=== PATIENT | female | born 1950 | race Caucasian/White ===

== ENCOUNTER 2020-11-23 09:34 | Inpatient (IN) | payer MEDICARE, OTHER ==
--- NOTE | 2020-11-23 09:44 | ERPHSYRPT ---
- History of Present Illness Time Seen by Provider: 11/23/20 09:44 Source: patient, EMS Exam Limitations: no limitations Physician History: This is a 70-year-old white female with a history of gastroesophageal reflux disease, hypertension, diabetes, elevated cholesterol who has been sick for 1 week. Her symptoms include weakness, nausea decreased appetite, mild cough and chills. She has been exposed to an individual who is currently in the hospital with a COVID-19 infection. Patient lives alone. She was seen yesterday at [facility] emergency room and given intravenous fluids and blood work was performed. She was then sent home. However, this morning she states that her generalized weakness is significant. She was brought into the emergency department via ambulance service. Patient denies chest pain he has no significant abdominal pain. Timing/Duration: week(s) (1), gradual onset, worse Severity: moderate Associated Symptoms: nausea, shortness of breath, cough (Mild), chills, loss of appetite, malaise, weakness, No chest pain Allergies/Adverse Reactions: No Known Drug Allergies Allergy (Verified 11/23/20 10:12) Home Medications: Esomeprazole Magnesium [Nexium] 40 mg PO DAILY 03/04/20 [History] Ibandronate Sodium [Boniva] 150 mg PO UD 03/04/20 [History] Lisinopril 10 mg [Zestril 10 MG] 10 mg PO DAILY 03/04/20 [History] Rosuvastatin Calcium [Crestor] 20 mg PO HS 03/04/20 [History] glyBURIDE [Glyburide] 2.5 mg PO DAILY 03/04/20 [History] Travel Risk - International Travel Have you traveled outside of the country in past 3 weeks: No - Coronavirus Screening Are you exhibiting any of the following symptoms?: Yes Symptoms: Cough: New Onset, Shortness of Breath, Vomiting/Diarrhea Close contact with a COVID-19 positive Pt in past 14-21 Days: Yes - Vaccine Status Have you recieved a Covid-19 vaccination: No - Review of Systems Constitutional: Chills, Weakness Eyes: No Symptoms Ears, Nose, & Throat: No Symptoms Respiratory: Cough (Mild), Dyspnea (Mild) Cardiac: No Symptoms Abdominal/Gastrointestinal: Nausea, Appetite Changes, No Abdominal Pain, No Vomiting, No Diarrhea Genitourinary Symptoms: No Symptoms Musculoskeletal: No Symptoms Skin: No Symptoms Neurological: No Symptoms Psychological: No Symptoms Endocrine: No Symptoms Hematologic/Lymphatic: No Symptoms Immunological/Allergic: No Symptoms All Other Systems: Reviewed and Negative - Past Medical History Pertinent Past Medical History: Yes Neurological History: No Pertinent History ENT History: No Pertinent History Cardiac History: High Cholesterol, Hypertension Respiratory History: No Pertinent History Endocrine Medical History: Other Musculoskeletal History: Osteoporosis GI Medical History: GERD History: No Pertinent History Psycho-Social History: No Pertinent History Female Reproductive Disorders: No Pertinent History Other Medical History: borderline diabetic - Past Surgical History Past Surgical History: Yes Neuro Surgical History: No Pertinent History Cardiac: No Pertinent History Respiratory: No Pertinent History Gastrointestinal: Appendectomy Genitourinary: No Pertinent History Musculoskeletal: No Pertinent History Female Surgical History: Hysterectomy Other Surgical History: bladder tie up - Social History Smoking Status: Never smoker Drug Use: none - Nursing Vital Signs Nursing Vital Signs: Initial Vital Signs Temperature 97.7 F 11/23/20 09:54 Pulse Rate 77 11/23/20 09:54 Respiratory Rate 32 H 11/23/20 09:54 Blood Pressure 154/63 11/23/20 09:54 O2 Sat by Pulse Oximetry 99 11/23/20 09:54 Pain Scale Pain Intensity 0 - Physical Exam General Appearance: mild distress, alert, anxiety Eye Exam: PERRL/EOMI, eyes nml inspection Ears, Nose, Throat Exam: normal ENT inspection, moist mucous membranes Neck Exam: normal inspection, non-tender, supple, full range of motion Respiratory Exam: normal breath sounds, lungs clear, airway intact, No chest tenderness, No respiratory distress Cardiovascular Exam: regular rate/rhythm, normal heart sounds, normal peripheral pulses Gastrointestinal/Abdomen Exam: soft, normal bowel sounds, No tenderness Pelvic Exam: not done Rectal Exam: not done Extremity Exam: normal inspection, normal range of motion, pelvis stable Neurologic Exam: alert, oriented x 3, cooperative, 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 No comparison EKG available) Ordered Tests: Active Orders 24 hr Category Date Time Status EKG-ER Only STAT Care 11/23/20 09:54 Active IV Insertion STAT Care 11/23/20 09:54 Active Isolation, Initiate & Maintain STAT Care 11/23/20 09:55 Active Isolation, Initiate & Maintain STAT Care 11/23/20 09:58 Active House Regular Diet Diet 11/23/20 Dinner Active CHEST 1 VIEW (PORTABLE) Stat Exams 11/23/20 09:58 Completed CHEST WITH CONTRAST [CT] Stat Exams 11/23/20 12:51 Completed BLOOD CULTURE Stat Lab 11/23/20 11:00 Received CBC W DIFF Stat Lab 11/23/20 11:00 Completed CMP Stat Lab 11/23/20 11:00 Completed CULTURE,URINE Stat Lab 11/23/20 15:04 Received D-DIMER QUANTITATIVE Stat Lab 11/23/20 11:00 Completed Ferritin Stat Lab 11/23/20 11:00 Completed INFLUENZA A+B SHIRLENE Stat Lab 11/23/20 10:35 Completed LDH-LACTATE DEHYDROGENASE Stat Lab 11/23/20 11:00 Completed Lactic Acid Stat Lab 11/23/20 11:04 Completed Gilmer Screen Stat Lab 11/23/20 11:00 Completed TROPONIN Q3H Lab 11/23/20 11:00 Completed TROPONIN Q3H Lab 11/23/20 13:00 Completed TROPONIN Q3H Lab 11/23/20 16:00 Ordered TROPONIN Q3H Lab 11/23/20 19:00 Ordered TROPONIN Q3H Lab 11/23/20 22:00 Ordered UA W/RFX UR CULTURE Stat Lab 11/23/20 15:04 Completed Transfer Order Routine Transfer 11/23/20 Ordered Medication Summary Generic Name Dose Route Start Last Admin Trade Name Freq PRN Reason Stop Dose Admin Enoxaparin Sodium 60 mg 11/23/20 22:00 Enoxaparin Sodium SQ 12/23/20 21:59 BID KEVIN Sodium Chloride 1,000 mls @ 50 mls/hr 11/23/20 10:00 11/23/20 10:25 Sodium Chloride 0.9% 1000 Ml IV 12/23/20 09:59 50 mls/hr .Q20H KEVIN Administration Remdesivir 100 mg/ Sodium 100 mls @ 100 mls/hr 11/24/20 16:04 Chloride IV 11/27/20 17:03 Q24H KEVIN Discontinued Medications Generic Name Dose Route Start Last Admin Trade Name Colt PRN Reason Stop Dose Admin Dexamethasone Sodium Phosphate 8 mg 11/23/20 15:56 11/23/20 16:03 Decadron 10mg Inj. IV 11/23/20 15:57 8 mg STAT ONE Administration Dexamethasone Sodium Phosphate Confirm 11/23/20 16:01 Decadron 10mg Inj. Administered 11/23/20 16:02 Dose 10 mg .ROUTE .STK-MED ONE Enoxaparin Sodium 50 mg 11/23/20 15:57 11/23/20 16:04 Enoxaparin Sodium SQ 11/23/20 15:58 50 mg STAT ONE Administration Enoxaparin Sodium Confirm 11/23/20 16:01 Enoxaparin Sodium Administered 11/23/20 16:02 Dose 80 mg SQ .STK-MED ONE Ondansetron HCl 4 mg 11/23/20 09:54 11/23/20 10:25 Zofran 4 Mg/2 Ml Vial IV 11/23/20 09:55 4 mg STAT ONE Administration Ondansetron HCl Confirm 11/23/20 10:21 Zofran 4 Mg/2 Ml Vial Administered 11/23/20 10:22 Dose 4 mg .ROUTE .STK-MED ONE Lab/Rad Data: Laboratory Result Diagrams 11/23/20 11:00 11/23/20 11:00 Laboratory Results 11/23/20 11/23/20 11/23/20 Range/Units 15:04 13:00 11:04 WBC (4.0-10.5) K/mm3 RBC (4.1-5.4) M/mm3 Hgb (12.0-16.0) gm/dl Hct (35-47) % MCV (78-100) fl MCH (26-32) pg MCHC (32-36) g/dl RDW (11.5-14.0) % Plt Count (150-450) K/mm3 MPV (7.5-11.0) fl Gran % (36.0-66.0) % Eos # (Auto) (0-0.5) Absolute Lymphs (auto) (1.0-4.6) Absolute Monos (auto) (0.0-1.3) Lymphocytes % (24.0-44.0) % Monocytes % (0.0-12.0) % Eosinophils % (0.00-5.0) % Basophils % (0.0-0.4) % Absolute Granulocytes (1.4-6.9) Basophils # (0-0.4) D-Dimer (215-500) ng/mL Sodium (137-145) mmol/L Potassium (3.5-5.1) mmol/L Chloride (98-107) mmol/L Carbon Dioxide (22-30) mmol/L Anion Gap (5-15) MEQ/L BUN (7-17) mg/dL Creatinine (0.52-1.04) mg/dL Estimated GFR ML/MIN Glucose (74-106) mg/dL Lactic Acid 1.6 (0.4-2.0) Calcium (8.4-10.2) mg/dL Ferritin (11.1-264) ng/mL Total Bilirubin (0.2-1.3) mg/dL AST (14-36) U/L ALT (0-35) U/L Alkaline Phosphatase (38-126) U/L Lactate Dehydrogenase (120-246) U/L Troponin I < 0.012 (0.000-0.034) ng/mL Serum Total Protein (6.3-8.2) g/dL Albumin (3.5-5.0) g/dL Urine Color YELLOW (YELLOW) Urine Appearance CLEAR (CLEAR) Urine pH 6.0 (5-6) Ur Specific [place] 1.044 (1.005-1.025) Urine Protein NEGATIVE (Negative) Urine Ketones SMALL (NEGATIVE) Urine Blood SMALL (0-5) Johnnie/ul Urine Nitrite NEGATIVE (NEGATIVE) Urine Bilirubin NEGATIVE (NEGATIVE) Urine Urobilinogen NEGATIVE (0-1) mg/dL Ur Leukocyte Esterase NEGATIVE (NEGATIVE) Urine WBC (Auto) 3-5 (0-5) /HPF Urine RBC (Auto) 0-2 (0-2) /HPF U Epithel Cells (Auto) NONE (FEW) /HPF Urine Bacteria (Auto) MANY (NEGATIVE) /HPF Urine Mucus (Auto) SLIGHT (NEGATIVE) /HPF Urine Culture Reflexed YES (NO) Urine Glucose NEGATIVE (NEGATIVE) mg/dL Monoscreen (Negative) Influenza Type A Ag (NEGATIVE) Influenza Type B Ag (NEGATIVE) Group A Strep Antibody (NEGATIVE) 11/23/20 11/23/2011/23/21 Range/Units 11:00 11:00 11:00 WBC (4.0-10.5) K/mm3 RBC (4.1-5.4) M/mm3 Hgb (12.0-16.0) gm/dl Hct (35-47) % MCV (78-100) fl MCH (26-32) pg MCHC (32-36) g/dl RDW (11.5-14.0) % Plt Count (150-450) K/mm3 MPV (7.5-11.0) fl Gran % (36.0-66.0) % Eos # (Auto) (0-0.5) Absolute Lymphs (auto) (1.0-4.6) Absolute Monos (auto) (0.0-1.3) Lymphocytes % (24.0-44.0) % Monocytes % (0.0-12.0) % Eosinophils % (0.00-5.0) % Basophils % (0.0-0.4) % Absolute Granulocytes (1.4-6.9) Basophils # (0-0.4) D-Dimer (215-500) ng/mL Sodium (137-145) mmol/L Potassium (3.5-5.1) mmol/L Chloride (98-107) mmol/L Carbon Dioxide (22-30) mmol/L Anion Gap (5-15) MEQ/L BUN (7-17) mg/dL Creatinine (0.52-1.04) mg/dL Estimated GFR ML/MIN Glucose (74-106) mg/dL Lactic Acid (0.4-2.0) Calcium (8.4-10.2) mg/dL Ferritin 284 H (11.1-264) ng/mL Total Bilirubin (0.2-1.3) mg/dL AST (14-36) U/L ALT (0-35) U/L Alkaline Phosphatase (38-126) U/L Lactate Dehydrogenase (120-246) U/L Troponin I < 0.012 (0.000-0.034) ng/mL Serum Total Protein (6.3-8.2) g/dL Albumin (3.5-5.0) g/dL Urine Color (YELLOW) Urine Appearance (CLEAR) Urine pH (5-6) Ur Specific [place] (1.005-1.025) Urine Protein (Negative) Urine Ketones (NEGATIVE) Urine Blood (0-5) Johnnie/ul Urine Nitrite (NEGATIVE) Urine Bilirubin (NEGATIVE) Urine Urobilinogen (0-1) mg/dL Ur Leukocyte Esterase (NEGATIVE) Urine WBC (Auto) (0-5) /HPF Urine RBC (Auto) (0-2) /HPF U Epithel Cells (Auto) (FEW) /HPF Urine Bacteria (Auto) (NEGATIVE) /HPF Urine Mucus (Auto) (NEGATIVE) /HPF Urine Culture Reflexed (NO) Urine Glucose (NEGATIVE) mg/dL Monoscreen NEGATIVE (Negative) Influenza Type A Ag (NEGATIVE) Influenza Type B Ag (NEGATIVE) Group A Strep Antibody (NEGATIVE) 11/23/20 11/23/20 11/23/20 Range/Units 11:00 11:00 11:00 WBC 3.5 L (4.0-10.5) K/mm3 RBC 4.11 (4.1-5.4) M/mm3 Hgb 12.5 (12.0-16.0) gm/dl Hct 37.8 (35-47) % MCV 92.0 (78-100) fl MCH 30.4 (26-32) pg MCHC 33.1 (32-36) g/dl RDW 12.2 (11.5-14.0) % Plt Count 143 L (150-450) K/mm3 MPV 10.8 (7.5-11.0) fl Gran % 70.1 H (36.0-66.0) % Eos # (Auto) 0 (0-0.5) Absolute Lymphs (auto) 0.74 L (1.0-4.6) Absolute Monos (auto) 0.31 (0.0-1.3) Lymphocytes % 21.1 L (24.0-44.0) % Monocytes % 8.8 (0.0-12.0) % Eosinophils % 0.0 (0.00-5.0) % Basophils % 0.0 (0.0-0.4) % Absolute Granulocytes 2.46 (1.4-6.9) Basophils # 0 (0-0.4) D-Dimer 1080 H* (215-500) ng/mL Sodium 138 (137-145) mmol/L Potassium 4.7 (3.5-5.1) mmol/L Chloride 105 (98-107) mmol/L Carbon Dioxide 22 (22-30) mmol/L Anion Gap 14.6 (5-15) MEQ/L BUN 16 (7-17) mg/dL Creatinine 0.60 (0.52-1.04) mg/dL Estimated GFR > 60.0 ML/MIN Glucose 52 L (74-106) mg/dL Lactic Acid (0.4-2.0) Calcium 8.9 (8.4-10.2) mg/dL Ferritin (11.1-264) ng/mL Total Bilirubin 0.50 (0.2-1.3) mg/dL AST 38 H (14-36) U/L ALT 25 (0-35) U/L Alkaline Phosphatase 49 (38-126) U/L Lactate Dehydrogenase 210 (120-246) U/L Troponin I (0.000-0.034) ng/mL Serum Total Protein 6.6 (6.3-8.2) g/dL Albumin 3.9 (3.5-5.0) g/dL Urine Color (YELLOW) Urine Appearance (CLEAR) Urine pH (5-6) Ur Specific [place] (1.005-1.025) Urine Protein (Negative) Urine Ketones (NEGATIVE) Urine Blood (0-5) Johnnie/ul Urine Nitrite (NEGATIVE) Urine Bilirubin (NEGATIVE) Urine Urobilinogen (0-1) mg/dL Ur Leukocyte Esterase (NEGATIVE) Urine WBC (Auto) (0-5) /HPF Urine RBC (Auto) (0-2) /HPF U Epithel Cells (Auto) (FEW) /HPF Urine Bacteria (Auto) (NEGATIVE) /HPF Urine Mucus (Auto) (NEGATIVE) /HPF Urine Culture Reflexed (NO) Urine Glucose (NEGATIVE) mg/dL Monoscreen (Negative) Influenza Type A Ag (NEGATIVE) Influenza Type B Ag (NEGATIVE) Group A Strep Antibody (NEGATIVE) 11/23/20 11/23/20 Range/Units 10:35 10:35 WBC (4.0-10.5) K/mm3 RBC (4.1-5.4) M/mm3 Hgb (12.0-16.0) gm/dl Hct (35-47) % MCV (78-100) fl MCH (26-32) pg MCHC (32-36) g/dl RDW (11.5-14.0) % Plt Count (150-450) K/mm3 MPV (7.5-11.0) fl Gran % (36.0-66.0) % Eos # (Auto) (0-0.5) Absolute Lymphs (auto) (1.0-4.6) Absolute Monos (auto) (0.0-1.3) Lymphocytes % (24.0-44.0) % Monocytes % (0.0-12.0) % Eosinophils % (0.00-5.0) % Basophils % (0.0-0.4) % Absolute Granulocytes (1.4-6.9) Basophils # (0-0.4) D-Dimer (215-500) ng/mL Sodium (137-145) mmol/L Potassium (3.5-5.1) mmol/L Chloride (98-107) mmol/L Carbon Dioxide (22-30) mmol/L Anion Gap (5-15) MEQ/L BUN (7-17) mg/dL Creatinine (0.52-1.04) mg/dL Estimated GFR ML/MIN Glucose (74-106) mg/dL Lactic Acid (0.4-2.0) Calcium (8.4-10.2) mg/dL Ferritin (11.1-264) ng/mL Total Bilirubin (0.2-1.3) mg/dL AST (14-36) U/L ALT (0-35) U/L Alkaline Phosphatase (38-126) U/L Lactate Dehydrogenase (120-246) U/L Troponin I (0.000-0.034) ng/mL Serum Total Protein (6.3-8.2) g/dL Albumin (3.5-5.0) g/dL Urine Color (YELLOW) Urine Appearance (CLEAR) Urine pH (5-6) Ur Specific [place] (1.005-1.025) Urine Protein (Negative) Urine Ketones (NEGATIVE) Urine Blood (0-5) Johnnie/ul Urine Nitrite (NEGATIVE) Urine Bilirubin (NEGATIVE) Urine Urobilinogen (0-1) mg/dL Ur Leukocyte Esterase (NEGATIVE) Urine WBC (Auto) (0-5) /HPF Urine RBC (Auto) (0-2) /HPF U Epithel Cells (Auto) (FEW) /HPF Urine Bacteria (Auto) (NEGATIVE) /HPF Urine Mucus (Auto) (NEGATIVE) /HPF Urine Culture Reflexed (NO) Urine Glucose (NEGATIVE) mg/dL Monoscreen (Negative) Influenza Type A Ag NEGATIVE (NEGATIVE) Influenza Type B Ag NEGATIVE (NEGATIVE) Group A Strep Antibody NEGATIVE (NEGATIVE) - Progress Progress: improved, re-examined Progress Note: 11/23/20 10:30 Chest x-ray shows left lower lobe hazy interstitial alveolar opacity without consolidation. 11/23/20 13:59 Chest CAT scan with contrast shows no pulmonary embolus. There is bilateral lower lobe patchy airspace disease and mild right upper lobe patchy airspace disease present. Counseled pt/family regarding: lab results, diagnosis, rad results - Departure Departure Disposition: In-patient Admission Clinical Impression: COVID-19 virus infection, Weakness Condition: Stable Critical Care Time: No Referrals: MARIO POLANCO [Primary Care Provider] -
[2020-11-23] MEDS ORDERED: Zofran 4 MG/2 ML VIAL IV ONE (09:54)
[2020-11-23] MEDS ORDERED: Sodium Chloride 0.9% 1000 ML 1,000 ML IV SCH (10:00)
--- NOTE | 2020-11-23 10:20 | XRAY ---
Indication: Cough. Positive Covid 19. Comparison: None Portable chest demonstrates left lower lobe hazy interstitial alveolar opacity without consolidation/large effusion. Remaining heart and lungs unremarkable with incidental small mediastinal calcified nodes. Bony thorax intact.
[2020-11-23] MEDS ORDERED: Sodium Chloride 0.9% 1000 ML 1,000 ML ONE (10:21)
[2020-11-23] MEDS ORDERED: Zofran 4 MG/2 ML VIAL ONE (10:21)
[2020-11-23 11:07] LABS: INFLUENZA A NEGATIVE (NEGATIVE); INFLUENZA B NEGATIVE (NEGATIVE)
[2020-11-23 11:20] LABS: Absolute Neutrophil Ct (ANC) 2.46 (1.4-6.9); Basophil (Absolute #) 0 (0-0.4); Eosinophil (Absolute #) 0 (0-0.5); Hematocrit 37.8 % (35-47); Hemoglobin 12.5 gm/dl (12.0-16.0); Lymphocyte (Absolute #) 0.74 (1.0-4.6); Lymphocytes % 21.1 % (24.0-44.0); Mean Corpuscular Hemoglobin 30.4 pg (26-32); Mean Corpuscular Hgb Concent. 33.1 g/dl (32-36); Mean Platelet Volume 10.8 fl (7.5-11.0); Monocyte (Absolute #) 0.31 (0.0-1.3); Monocytes % 8.8 % (0.0-12.0); Neutrophil % 70.1 % (36.0-66.0); Platelet Count 143 K/mm3 (150-450); Red Blood Count 4.11 M/mm3 (4.1-5.4); Red Cell Distribution Width 12.2 % (11.5-14.0); White Blood Count 3.5 K/mm3 (4.0-10.5)
[2020-11-23 11:21] LABS: ALBUMIN 3.9 g/dL (3.5-5.0); ALKALINE PHOSPHATASE 49 U/L (38-126); ANION GAP 14.6 MEQ/L (5-15); BLOOD UREA NITROGEN 16 mg/dL (7-17); CHLORIDE 105 mmol/L (98-107); Calcium 8.9 mg/dL (8.4-10.2); Carbon Dioxide 22 mmol/L (22-30); EST GLOMERULAR FILTRATION RATE > 60.0 ML/MIN; Glucose 52 mg/dL (74-106); LDH-LACTATE DEHYDROGENASE 210 U/L (120-246); Potassium 4.7 mmol/L (3.5-5.1); SGOT/AST 38 U/L (14-36); SGPT/ALT 25 U/L (0-35); SODIUM 138 mmol/L (137-145); Total Protein 6.6 g/dL (6.3-8.2)
[2020-11-23] MEDS ORDERED: HOLD METFORMIN PRODUCTS FOR 48 HOURS MC PRN (13:00)
--- NOTE | 2020-11-23 13:08 | XRAY ---
Indication: Short of breath. Positive Covid 19. Elevated d-dimer. Multiple contiguous axial images obtained through the chest using 80 cc Isovue 370 contrast and PE protocol. Comparison: None There is good opacification of the pulmonary arteries to include the lobar and segmental branches. No pulmonary embolus. Heart is not enlarged. Aorta is normal in course and caliber. Small precarinal calcified nodes. No pathologic mediastinal/hilar lymphadenopathy. Small hiatal hernia. Lungs demonstrate posterior bilateral lower lobe patchy airspace disease left greater than right. Additional minimal posterior right upper lobe patchy airspace disease. No consolidation or effusion. Incidental inferior right upper lobe calcified granuloma. Bony thorax intact with minimal degenerative changes throughout the spine. Limited upper abdomen demonstrate mild fatty liver. Impression: 1. Negative pulmonary embolus. 2. Bilateral lower lobe and lesser degree right upper lobe patchy airspace disease. 3. Incidental fatty liver, small hiatal hernia, and old granulomatous disease.
[2020-11-23 15:45] LABS: Appearance CLEAR (CLEAR); Bacteria MANY /HPF (NEGATIVE); Bilirubin NEGATIVE (NEGATIVE); Blood SMALL Ery/ul (0-5); Glucose NEGATIVE (NEGATIVE); Ketones SMALL (NEGATIVE); Leukocyte Esterase NEGATIVE (NEGATIVE); Mucus SLIGHT /HPF (NEGATIVE); Nitrite NEGATIVE (NEGATIVE); Protein,Urine Dip NEGATIVE (Negative); RBC 0-2 /HPF (0-2); Specific Gravity 1.044 (1.005-1.025); Urobilinogen NEGATIVE mg/dL (0-1)
[2020-11-23] MEDS ORDERED: DECADRON 10MG INJ. IV ONE (15:56)
[2020-11-23] MEDS ORDERED: ENOXAPARIN SODIUM SQ ONE ×2 (15:57→16:01)
[2020-11-23] MEDS ORDERED: DECADRON 10MG INJ. ONE (16:01)
[2020-11-23] MEDS ORDERED: TYLENOL 325 MG PO PRN (16:40)
[2020-11-23] MEDS ORDERED: Zofran 4 MG/2 ML VIAL IV PRN (16:40)
[2020-11-23] MEDS ORDERED: REMDESIVIR 200 MG in Sodium Chloride 0.9% 250 ML 250 ML IV ONE (18:00)
[2020-11-23] MEDS ORDERED: Ativan 1 MG PO PRN (19:52)
[2020-11-23] MEDS ORDERED: Lomotil PO PRN (19:53)
[2020-11-23] MEDS ORDERED: TYLENOL EXTRA STRENGTH 500 MG PO PRN (19:53)
[2020-11-23] MEDS ORDERED: ZOCOR 20MG PO SCH (22:00)
[2020-11-23] MEDS ORDERED: ENOXAPARIN SODIUM SQ SCH (22:00)
[2020-11-24 07:20] LABS: ALBUMIN 3.2 g/dL (3.5-5.0); ALKALINE PHOSPHATASE 44 U/L (38-126); ANION GAP 9.5 MEQ/L (5-15); BLOOD UREA NITROGEN 13 mg/dL (7-17); CHLORIDE 110 mmol/L (98-107); Calcium 7.7 mg/dL (8.4-10.2); Carbon Dioxide 22 mmol/L (22-30); Creatinine 1 0.57 mg/dL (0.52-1.04); EST GLOMERULAR FILTRATION RATE > 60.0 ML/MIN; Glucose 140 mg/dL (74-106); Potassium 3.5 mmol/L (3.5-5.1); SGOT/AST 35 U/L (14-36); SGPT/ALT 22 U/L (0-35); SODIUM 138 mmol/L (137-145); Total Protein 5.7 g/dL (6.3-8.2)
[2020-11-24 07:24] LABS: Hematocrit 33.3 % (35-47); Mean Corpuscular Hemoglobin 30.4 pg (26-32); Mean Platelet Volume 11.4 fl (7.5-11.0); Platelet Count 139 K/mm3 (150-450); Red Blood Count 3.62 M/mm3 (4.1-5.4); Red Cell Distribution Width 12.4 % (11.5-14.0)
[2020-11-24] MEDS ORDERED: IBANDRONATE SODIUM 150 MG PO SCH (07:30)
[2020-11-24] MEDS ORDERED: MEDICATION INTERVENTION PO SCH (07:45)
[2020-11-24] MEDS: Sodium Chloride 0.9% 1000 ML 1,000 ML IV SCH ×2 (08:18→11:31)
[2020-11-24] MEDS: DECADRON 10MG INJ. IV SCH (09:49)
[2020-11-24] MEDS: Zestril 10 MG PO SCH (09:49)
[2020-11-24] MEDS ORDERED: GLYBURIDE 2.5 MG PO SCH (10:00)
[2020-11-24 14:38] LABS: ANISOCYTOSIS 1+; Lymphocytes 29 % (24-44); Monocyte 10 % (0.0-12.0); Neutrophils 61 % (36.0-66.0); Platelet Estimate NORMAL (NORMAL); Total Cells Counted 100
[2020-11-24] MEDS ORDERED: REMDESIVIR 100 MG in Sodium Chloride 0.9% 100 ML IVPB 100 ML IV SCH (16:04)
[2020-11-24] MEDS: REMDESIVIR 100 MG in Sodium Chloride 0.9% 100 ML IVPB 100 ML IV SCH (17:00)
[2020-11-24] MEDS: ZOCOR 20MG PO SCH (21:32)
[2020-11-25] MEDS: Sodium Chloride 0.9% 1000 ML 1,000 ML IV SCH ×2 (06:05→21:59)
[2020-11-25 06:09] LABS: Hematocrit 33.8 % (35-47); Hemoglobin 11.4 gm/dl (12.0-16.0); Mean Cell Volume 91.4 fl (78-100); Mean Corpuscular Hemoglobin 30.8 pg (26-32); Mean Corpuscular Hgb Concent. 33.7 g/dl (32-36); Mean Platelet Volume 10.9 fl (7.5-11.0); Platelet Count 161 K/mm3 (150-450); Red Cell Distribution Width 12.3 % (11.5-14.0); White Blood Count 4.5 K/mm3 (4.0-10.5)
[2020-11-25 06:22] LABS: ALKALINE PHOSPHATASE 44 U/L (38-126); ANION GAP 9.9 MEQ/L (5-15); BLOOD UREA NITROGEN 18 mg/dL (7-17); CHLORIDE 113 mmol/L (98-107); Calcium 8.1 mg/dL (8.4-10.2); Carbon Dioxide 22 mmol/L (22-30); Creatinine 1 0.56 mg/dL (0.52-1.04); EST GLOMERULAR FILTRATION RATE > 60.0 ML/MIN; Glucose 133 mg/dL (74-106); Potassium 3.4 mmol/L (3.5-5.1); SGOT/AST 32 U/L (14-36); SGPT/ALT 25 U/L (0-35); SODIUM 141 mmol/L (137-145); Total Protein 5.4 g/dL (6.3-8.2)
[2020-11-25] MEDS ORDERED: Levofloxacin 500MG/100ML D5W 500 MG/100 ML BAG IV ONE ×2 (07:00→07:02)
[2020-11-25] MEDS: Micronase 5 MG PO SCH (07:46)
[2020-11-25] MEDS: DECADRON 10MG INJ. IV SCH (10:06)
[2020-11-25] MEDS: Zestril 10 MG PO SCH (10:07)
[2020-11-25] MEDS ORDERED: Sodium Chloride 0.9% 1000 ML 1,000 ML IV SCH (12:00)
[2020-11-25 12:48] LABS: Slide Review YES
[2020-11-25] MEDS: ENOXAPARIN SODIUM SQ SCH (13:35)
[2020-11-25 14:10] LABS: Appearance CLEAR (CLEAR); Bacteria RARE /HPF (NEGATIVE); Bilirubin NEGATIVE (NEGATIVE); Blood NEGATIVE Ery/ul (0-5); Glucose NEGATIVE (NEGATIVE); Ketones NEGATIVE (NEGATIVE); Leukocyte Esterase MODERATE (NEGATIVE); Nitrite NEGATIVE (NEGATIVE); Protein,Urine Dip NEGATIVE (Negative); RBC 0-2 /HPF (0-2); Urobilinogen NEGATIVE mg/dL (0-1); WBC 26-50 /HPF (0-5)
[2020-11-25] MEDS: REMDESIVIR 100 MG in Sodium Chloride 0.9% 100 ML IVPB 100 ML IV SCH (17:14)
[2020-11-25] MEDS: ZOCOR 20MG PO SCH (21:59)
[2020-11-26 05:45] LABS: Absolute Neutrophil Ct (ANC) 2.69 (1.4-6.9); BASOPHIL % 0.2 % (0.0-0.4); Basophil (Absolute #) 0.01 (0-0.4); Eosinophil (Absolute #) 0 (0-0.5); Hematocrit 32.2 % (35-47); Hemoglobin 10.7 gm/dl (12.0-16.0); Lymphocyte (Absolute #) 1.14 (1.0-4.6); Lymphocytes % 26.3 % (24.0-44.0); Mean Cell Volume 92.3 fl (78-100); Mean Corpuscular Hemoglobin 30.7 pg (26-32); Mean Corpuscular Hgb Concent. 33.2 g/dl (32-36); Mean Platelet Volume 11.4 fl (7.5-11.0); Monocyte (Absolute #) 0.49 (0.0-1.3); Monocytes % 11.3 % (0.0-12.0); Neutrophil % 62.2 % (36.0-66.0); Platelet Count 163 K/mm3 (150-450); Red Blood Count 3.49 M/mm3 (4.1-5.4); Red Cell Distribution Width 12.4 % (11.5-14.0); White Blood Count 4.3 K/mm3 (4.0-10.5)
[2020-11-26 06:15] LABS: ALBUMIN 2.7 g/dL (3.5-5.0); ALKALINE PHOSPHATASE 41 U/L (38-126); BLOOD UREA NITROGEN 20 mg/dL (7-17); CHLORIDE 113 mmol/L (98-107); Carbon Dioxide 25 mmol/L (22-30); Creatinine 1 0.61 mg/dL (0.52-1.04); EST GLOMERULAR FILTRATION RATE > 60.0 ML/MIN; Glucose 123 mg/dL (74-106); Potassium 3.2 mmol/L (3.5-5.1); SGOT/AST 32 U/L (14-36); SGPT/ALT 30 U/L (0-35); SODIUM 142 mmol/L (137-145)
[2020-11-26 07:55] LABS: Lymphocytes 32 % (24-44); Monocyte 6 % (0.0-12.0); Neutrophils 62 % (36.0-66.0); Platelet Estimate NORMAL (NORMAL); Total Cells Counted 100
[2020-11-26] MEDS: Micronase 5 MG PO SCH (07:59)
[2020-11-26 08:22] VITALS: BP 140/62
[2020-11-26] MEDS: Zestril 10 MG PO SCH (09:17)
[2020-11-26] MEDS: DECADRON 10MG INJ. IV SCH (09:18)
[2020-11-26] MEDS: ENOXAPARIN SODIUM SQ SCH (09:18)
--- NOTE | 2020-11-26 10:49 | HP ---
CHIEF COMPLAINT: Severe weakness, trouble walking, confusion, diarrhea. HISTORY OF PRESENT ILLNESS: The patient got up this morning fell to the floor and could not get off the floor. Crawled to the phone and she called 911. She was taken to [facility] and they evaluated her and sent her home. Her COVID test was positive yesterday. She was given IV fluids and blood was performed. Her generalized weakness is more significant today. She denies chest pain. She did have a slight cough while I talked to her but she had not really noticed and she said she was having some slight diarrhea. She really has been feeling kind of bad for a week. Her two friends and her went to a flower show, I believe, in a town nearby. They went into a restaurant and left when people were not isolating. Apparently they were unfortunate enough to get COVID at that time. MEDICATIONS: Nexium 40 q.d., Boniva 150 q.d., Zestril 10 q.d., Crestor 20 h.s., Glyburide 2.5 q.d. ALLERGIES: NKDA. VACCINE STATUS: No COVID vaccine. PAST MEDICAL HISTORY: High cholesterol, hypertension all under control. PAST SURGICAL HISTORY: Hysterectomy. Appendectomy. Bladder tie up. REVIEW OF SYSTEMS: CONSTITUTIONAL: Weakness, chills, problems with numbness in the feet and hands. HEENT: No problems hearing or seeing. CHEST: Cough, slightly short of breath. CVS: No symptoms. GI: Nausea, reflux usually. : The patient has had kidney stones on ultrasound. She has one on the left. She has trouble with long standing urinary tract infections with a kidney stone that was stuck at one time. MUSCULOSKELETAL: Osteoporosis, aching all over. PSYCHOSOCIAL: No history. ENDOCRINE: Borderline diabetic. She had hysterectomy and takes no hormones. FAMILY HISTORY: She has a daughter who is a nurse. SOCIAL HISTORY: Never smoked. PHYSICAL EXAMINATION: The patient is alert, orientated, pleasant, slightly tense. VITAL SIGNS: Temperature 98F, pulse 70, respirations 30, blood pressure 154/63. O2 saturation on room air 99%. Pain intensity 0. GENERAL: The patient is alert, orientated and very anxious. HEENT: Pupils equal and reactive to light. NECK: Supple without adenopathy. CHEST: Clear. CVS: No murmurs or gallops. ABDOMEN: Slight tenderness in the epigastric area otherwise normal. EXTREMITIES: Can move all, fair sensation. NEUROLOGIC: Cranial nerves intact. LAB DATA AND TESTS: CT abdomen was normal. CT of the chest showed no pulmonary embolism, bilateral lower lobe patchy airspace disease and mild right upper quadrant patchy airspace present. Normal O2 saturations. Troponins were negative. Influenza negative. Ferritin normal. White count was 3.5, hemoglobin 12.5. Electrolytes were normal except for sodium now 138, apparently was low at [facility]. IMPRESSION: The patient tested positive for COVID. She has generalized anxiety, feeling of disorientation and illness probably all related to the disease. The patient definitely has slight COVID pneumonia. She has feeling of dysphoria, recent neurological symptoms, anxiety. She is a very pleasant retired person. She should respond well to medical treatment and anxiety medicines. PROGNOSIS: Moose to be good.
[2020-11-26] MEDS: REMDESIVIR 100 MG in Sodium Chloride 0.9% 100 ML IVPB 100 ML IV SCH (12:10)
[2020-11-26 13:07] VITALS: PULSE 73; O2SAT 93
== END 2020-11-26 14:00 | disposition home or self-care (01) | DRG 177 ==
LOC: ED 09:34 → MED SURG 16:24
PROVIDERS: ADMIT Family Medicine; ATTEND Family Medicine
DX: U07.1 COVID-19 (principal); J12.82 Pneumonia due to coronavirus disease 2019; N39.0 Urinary tract infection, site not specified; R53.1 Weakness; I10 Essential (primary) hypertension; E86.0 Dehydration; E11.9 Type 2 diabetes mellitus without complications; E78.00 Pure hypercholesterolemia, unspecified; Z79.899 Other long term (current) drug therapy; R41.0 Disorientation, unspecified; R19.7 Diarrhea, unspecified; R26.2 Difficulty in walking, not elsewhere classified; F41.1 Generalized anxiety disorder
CPT/HCPCS: 36415; 71045; 71260; 80053; 81001; 82728; 83605; 83615; 84484; 85025; 85027; 85379; 86308; 87040; 87077; 87086; 87186; 87400; 87651; 93005; 94762; 96360; 96361; 96372; 96374; 96375; 99285; J1100; J1650; J1956; J2405; A9270-GY

== ENCOUNTER 2021-11-21 09:54 | Day surgery (SDC) | payer MEDICARE, OTHER ==
--- NOTE | 2021-11-15 11:14 | HP ---
DATE OF SURGERY: 11/21/2021 HISTORY OF PRESENT ILLNESS: The patient presents with symptomatic cholelithiasis. She had ultrasound showed some gallstones. The patient had discomfort and pain with this and pain into the left shoulder and left abdomen. She has been having some nausea with this as well. She has went to the emergency room for this x1. PAST MEDICAL HISTORY: Hypertension, hyperlipidemia, diabetes. PAST SURGICAL HISTORY: Appendectomy. Hysterectomy. Bladder tie up. ALLERGIES: NKDA. MEDICATIONS: Lisinopril, rosuvastatin, Glyburide, ibandronate, multivitamin supplements, garlic, vitamin C, vitamin D3, vitamin B. FAMILY HISTORY: None reported. SOCIAL HISTORY: None reported. REVIEW OF SYSTEMS: CONSTITUTIONAL: Denies fever or chills. CHEST: Denies shortness of breath. CVS: Denies chest pain. ABDOMEN: She reports abdominal pain, nausea. Denies vomiting, diarrhea, constipation or rectal bleeding. PHYSICAL EXAMINATION: GENERAL: No acute distress. CHEST: Nonlabored. No shortness of breath. CVS: Regular rate and rhythm. ABDOMEN: Soft, nontender. IMPRESSION: Symptomatic cholelithiasis. PLAN: Laparoscopic cholecystectomy with Dr. Albino Cadena. As dictated by Brianna Mendes NP.
[~2021-11-21 09:54] MED LIST: Lactated Ringers 1,000 ML IV SCH; Sensorcaine 0.25% 10 ML ONE
[2021-11-21] MEDS ORDERED: CLINDAMYCIN-D5W 900 MG/50 ML*** 900 MG/50 ML BAG IV ONE ×2 (10:05→10:30)
[2021-11-21] MEDS ORDERED: Levofloxacin 500MG/100ML D5W 500 MG/100 ML BAG IV ONE ×2 (10:05→10:30)
[2021-11-21] MEDS ORDERED: Lactated Ringers 1,000 ML IV ONE (10:05)
[2021-11-21] MEDS ORDERED: Zemuron 100 MG/10 ML ONE ×2 (12:43→13:45)
[2021-11-21] MEDS ORDERED: DIPRIVAN 200 MG/20 ML IV ONE ×2 (12:43→13:45)
[2021-11-21] MEDS ORDERED: SUBLIMAZE 100 MCG/2 ML ONE ×3 (12:44→13:46)
[2021-11-21] MEDS ORDERED: Versed 2 MG/2 ML Injection ONE (12:44)
[2021-11-21] MEDS ORDERED: Decadron 4 MG INJ ONE ×3 (13:15→13:45)
[2021-11-21] MEDS ORDERED: Zofran 4 MG/2 ML VIAL ONE ×2 (13:15→13:45)
[2021-11-21] MEDS ORDERED: BRIDION 200MG/2ML IV ONE ×2 (13:19→13:45)
[2021-11-21] MEDS ORDERED: Xylocaine-Mpf 2% 5 Ml Vial ONE (13:45)
[2021-11-21] MEDS ORDERED: TORAdol 30 mg Injection ONE (13:45)
[2021-11-21] MEDS ORDERED: Ephedrine Sulfate 50 MG/ML ONE (14:06)
--- NOTE | 2021-11-21 14:10 | OP ---
SURGERY DATE/TIME: 11/21/2021 1245 PREOPERATIVE DIAGNOSIS: Symptomatic cholelithiasis. POSTOPERATIVE DIAGNOSIS: Symptomatic cholelithiasis. PROCEDURE: Laparoscopic cholecystectomy. SURGEON: Dr. Albino Cadena. ANESTHESIA: General endotracheal tube. COMPLICATIONS: None. CONDITION: Stable. INDICATIONS: A patient with symptomatic gallbladder disease. DESCRIPTION OF PROCEDURE AND FINDINGS: Taken to surgery. General anesthetic, routine prep and drape. Veress needle inserted. Opening pressure of 1, insufflating pressure 14. She had two major incisions in the right paramedian and lower midline. Epigastric a Veress needle inserted. It seemed satisfactory. Insufflated. A 5 port was placed in here. It was fairly crowded but it was okay. A 5 was placed above the ascending colon, mid ascending colon and looking back one was placed near the umbilicus. The camera was moved down there. A second hole was placed a little more up in the paramedian under direct visualization. There was a band of adhesions that had to be taken down and taken down with LigaSure. The field was open to cholecystectomy at this time. Gallbladder retracted upwards. Infundibulum resected. Cystic duct triply clipped and transected. Cystic artery small and electrocoagulated. Gallbladder rolled out of gallbladder fossa, delivered intact through upper abdominal port. The field was clean and dry. CO2 exsufflated. Hole closure device used at the epigastric portion. It had been widened to about size 8. Field was totally dry.
[2021-11-21 15:06] VITALS: O2SAT 95
[2021-11-21 15:10] VITALS: BP 130/62; PULSE 82
== END 2021-11-21 14:45 | disposition home or self-care (01) ==
LOC: SDC 09:54
PROVIDERS: ATTEND Surgery
DX: K80.20 Calculus of gallbladder without cholecystitis without obstruction (principal); E11.9 Type 2 diabetes mellitus without complications
CPT/HCPCS: 82947; 93005; J1100; J1885; J1956; J2250; J2405; J2704; J3010

== ENCOUNTER 2022-01-16 07:31 | Day surgery (SDC) | payer MEDICARE, OTHER ==
--- NOTE | 2022-01-09 08:27 | HP ---
DATE OF SURGERY: 01/16/2022 HISTORY OF PRESENT ILLNESS: The patient is a recent postoperative from a cholecystectomy. She now complains of dysphagia. She needs evaluation per endoscopy. PAST MEDICAL HISTORY: Depression, hypertension, diabetes, hyperlipidemia. PAST SURGICAL HISTORY: Appendectomy. Cholecystectomy. Hysterectomy. Bladder tie up. ALLERGIES: PENICILLINS. MEDICATIONS: Lisinopril, Glyburide, diclofenac, Crestor, Boniva, Biotin. FAMILY HISTORY: None reported. SOCIAL HISTORY: None reported. REVIEW OF SYSTEMS: CONSTITUTIONAL: Denies fever or chills. CHEST: Denies shortness of breath. CVS: Denies chest pain. ABDOMEN: Denies abdominal pain. PHYSICAL EXAMINATION: GENERAL: No acute distress. CHEST: Nonlabored. No shortness of breath. CVS: Regular rate and rhythm. ABDOMEN: Soft. IMPRESSION: Dysphagia. PLAN: EGD with Dr. Albino Cadena. As dictated by Brianna Mendes NP.
[~2022-01-16 07:31] MED LIST changes: +Lactated Ringers 1,000 ML IV ONE; -Sensorcaine 0.25% 10 ML ONE
[2022-01-16] MEDS ORDERED: DIPRIVAN 200 MG/20 ML IV ONE (09:33)
[2022-01-16] MEDS ORDERED: Xylocaine-Mpf 2% 5 Ml Vial ONE (09:33)
[2022-01-16 10:25] VITALS: BP 123/60; PULSE 82; O2SAT 97
--- NOTE | 2022-01-16 13:03 | OP ---
SURGERY DATE: 01/16/2022 SURGERY TIME: 949 PREOPERATIVE DIAGNOSIS: 1. DYSPHAGIA. POSTOPERATIVE DIAGNOSIS: 1. 1 INCH HIATAL HERNIA. 2. A DISTAL ESOPHAGEAL STRICTURE QUITE SHORT IN NATURE, ABOUT A CM, AND ABOUT A SIZE 24. PROCEDURE: 1. EGD. SURGEON: Albino Cadena M.D. ANESTHESIA: MAC. COMPLICATIONS: None. CONDITION: Stable. OPERATIVE PROCEDURE: Patient taken to endoscopy. Left lateral decubitus position. Oroesophageal junction cannulated. Esophagus normal down to esophagogastric junction. This was under MAC. There wasn't much in the way of motility, but the esophagus looked just fine. There was a distal esophageal stricture, size 24, about a cm long. It was cannulated. There was a 1" hiatal hernia. Fundus, body, and antrum normal. Pylorus normal. Duodenal bulb normal. Second portion normal. Scope looped upon itself. 1" hiatal hernia. Scope withdrawn. It had been dilated slightly with the scope. It was one hair smaller than the scope, but otherwise, there was no consent for dilatation today. We placed her on Protonix. We will see her back in the office in about a month. Probably schedule her for a balloon dilatation in 3 months.
== END 2022-01-16 10:26 | disposition home or self-care (01) ==
LOC: SDC 07:31
PROVIDERS: ATTEND Surgery
DX: K44.9 Diaphragmatic hernia without obstruction or gangrene (principal); K22.2 Esophageal obstruction; R13.10 Dysphagia, unspecified; E11.9 Type 2 diabetes mellitus without complications
CPT/HCPCS: 82947; 99100; J2704

== ENCOUNTER 2023-07-02 08:27 | Day surgery (SDC) | payer MEDICARE, OTHER ==
--- NOTE | 2023-07-01 13:58 | HP ---
DATE OF SURGERY: 07/02/2023 HISTORY OF PRESENT ILLNESS: The patient is a 72-year-old female who presents with dysphagia. She had some dilatation in the past. She had return of symptoms just like before. PAST MEDICAL HISTORY: Gastroesophageal reflux disease, hypertension, hyperlipidemia, diabetes. PAST SURGICAL HISTORY: Cholecystectomy. Appendectomy. Hysterectomy. Lithotripsy. Exploratory laparotomy. ALLERGIES: PENICILLIN. MEDICATIONS: Lisinopril, rosuvastatin, glyburide, potassium, Protonix, ibandronate. FAMILY HISTORY: None. SOCIAL HISTORY: Negative. REVIEW OF SYSTEMS: CONSTITUTIONAL: Denies fever or chills. CHEST: Denies shortness of breath. CVS: Denies chest pain. ABDOMEN: Denies abdominal pain. PHYSICAL EXAMINATION: GENERAL: No acute distress. CHEST: Nonlabored. No shortness of breath. CVS: Regular rate and rhythm. ABDOMEN: Soft. IMPRESSION: Dysphagia. PLAN: EGD and possible dilatation with Dr. Albino Cadena. As dictated by Brianna Mendes NP.
[2023-07-02] MEDS ORDERED: Lactated Ringers 1,000 ML IV SCH (08:30)
[2023-07-02] MEDS ORDERED: Lactated Ringers 1,000 ML IV ONE (08:36)
[2023-07-02 09:28] LABS: ANION GAP 13.3 MEQ/L (5-15); Calcium 9.2 mg/dL (8.4-10.2); Creatinine 1 0.68 mg/dL (0.52-1.04); EST GLOMERULAR FILTRATION RATE 91.3 ML/MIN; Potassium 4.5 mmol/L (3.5-5.1)
[2023-07-02] MEDS ORDERED: DIPRIVAN 200 MG/20 ML IV ONE (10:33)
[2023-07-02] MEDS ORDERED: Xylocaine-Mpf 2% 5 Ml Vial ONE (10:33)
[2023-07-02 10:49] VITALS: RESP 20; TEMP 97.1
[2023-07-02 11:14] VITALS: BP 133/69; PULSE 77; O2SAT 100
--- NOTE | 2023-07-02 12:55 | OP ---
SURGERY DATE/TIME: 07/02/2023 1034 PREOPERATIVE DIAGNOSIS: Dysphagia with esophageal stricture. POSTOPERATIVE DIAGNOSIS: Dysphagia with esophageal stricture. PROCEDURE: EGD with Falcon dilatation to size 48. SURGEON: Albino Cadena M.D. ANESTHESIA: MAC. COMPLICATIONS: None. CONDITION: Stable. INDICATION: A patient requiring evaluation. DESCRIPTION OF PROCEDURE: The patient is taken to endoscopy. Left lateral decubitus position. Pharyngoesophageal junction satisfactory. MAC sedation satisfactory. Scope advanced. At 36 cm, there was about a size 44 aperture. There was a 2 inch hiatal hernia. Fundus, body and antrum satisfactory. Pylorus satisfactory. Duodenal bulb satisfactory. Second portion satisfactory. Scope looped upon itself. A 2 inch hiatal hernia. Scope withdrawn. A Falcon size 46 was placed, a Falcon size 48 was placed these were placed readily. The scope was reintroduced and the aperture is now size 48. I did not see any major signs of trauma. There was just a wisp of blood from the dilatation. No suggestion of any rents or perforation. The patient tolerated the procedure satisfactorily.
== END 2023-07-02 11:30 | disposition home or self-care (01) ==
LOC: SDC 08:27
PROVIDERS: ATTEND Surgery
DX: R13.10 Dysphagia, unspecified (principal); K22.2 Esophageal obstruction; I10 Essential (primary) hypertension; K44.9 Diaphragmatic hernia without obstruction or gangrene
CPT/HCPCS: 36415; 80048; 99100; C1726; J2704

== ENCOUNTER 2024-11-25 19:11 | Emergency (ER) | payer MEDICARE, OTHER ==
[2024-11-25 19:30] VITALS: RESP 18; TEMP 97.9; O2SAT 98
[2024-11-25] MEDS ORDERED: Vibramycin 100 MG ONE (19:44)
[2024-11-25] MEDS ORDERED: Adacel Vial IM ONE (19:44)
[2024-11-25] MEDS ORDERED: CLEOCIN 150 MG CAPSULE ONE (19:44)
[2024-11-25] MEDS ORDERED: NORCO 5/325 MG ONE (19:44)
[2024-11-25] MEDS: Adacel Vial IM ONE (19:46)
[2024-11-25] MEDS: CLEOCIN 150 MG CAPSULE PO ONE (19:47)
[2024-11-25] MEDS: Vibramycin 100 MG PO ONE (19:47)
[2024-11-25] MEDS: NORCO 5/325 MG PO ONE (19:47)
--- NOTE | 2024-11-25 19:47 | ERPHSYRPT ---
- History of Present Illness Time Seen by Provider: 11/25/24 19:15 Source: patient Exam Limitations: no limitations Patient Subjective Stated Complaint: pt states that she was getting something out of her puppy's mouth. pt states that her puppy bit her. pt states her hand is hurting and is red Triage Nursing Assessment: pt ambulated into the er; pt is axo x4; c/o left hand pain; pt states 5/10 pain to left hand; redness and warmth present to dorsal left hand; strong left radial pulse; good cap refill to left hand; no respiratory distress present; hypertensive Physician History: 74 years old female [id number] with history of hypertension, diabetes mellitus, hyperlipidemia presented in the ER with complaints of dog bite to left fifth finger yesterday when she was trying to get something out of her puppies mouth who is up-to-date with immunization and he accidentally bit her. Patient reports gradually increased swelling extending proximally from distal interphalangeal joint to involve the dorsum of hand on the medial side with some streaking going into the wrist area. Reports moderate intensity sharp pain with movements of the fingers. No fever or chills reported. Allergies/Adverse Reactions: Penicillins Allergy (Intermediate, Verified 11/25/24 19:16) Rash Home Medications: Ibandronate Sodium [Boniva] 150 mg PO UD 03/04/20 [History] Lisinopril 10 mg [Zestril 10 MG] 10 mg PO DAILY 03/04/20 [History] Rosuvastatin Calcium [Crestor] 20 mg PO HS 03/04/20 [History] glyBURIDE [Glyburide] 2.5 mg PO DAILY 03/04/20 [History] Cholecalciferol (Vitamin D3) [Vitamin D3] 1,250 mcg PO DAILY 11/14/21 [History] Multivitamin with Minerals [One Daily Complete] 1 each PO DAILY 11/14/21 [History] Potassium Citrate [Potassium Citrate ER] 1,620 mg PO DAILY 11/14/21 [History] Vitamin B Comp W-C [[place]hell-Bee with C] 1 tab PO DAILY 11/14/21 [History] Krill/Om-3/Dha/Epa/Phospho/Ast [Megared [place]-3 Krill 1,000 mg] 1 cap PO DAILY 01/13/22 [History] Hx Tetanus, Diphtheria Vaccination/Date Given: No Hx Influenza Vaccination/Date Given: No Hx Pneumococcal Vaccination/Date Given: No Travel Risk - International Travel Have you traveled outside of the country in past 3 weeks: No - Emerging Infectious Disease Are you exhibiting symptoms associated with any current EIDs: No - Review of Systems Constitutional: No Symptoms Ears, Nose, & Throat: No Symptoms Respiratory: No Symptoms Cardiac: No Symptoms Musculoskeletal: Injury Skin: Cellulitis, Skin Lesions Neurological: No Symptoms Endocrine: No Symptoms - Past Medical History Pertinent Past Medical History: Yes Neurological History: No Pertinent History ENT History: No Pertinent History Cardiac History: High Cholesterol, Hypertension Respiratory History: No Pertinent History Endocrine Medical History: Other Musculoskeletal History: Osteoporosis GI Medical History: GERD, Gallbladder Disease History: No Pertinent History Psycho-Social History: No Pertinent History Female Reproductive Disorders: No Pertinent History Other Medical History: borderline diabetic,hx kidney stones with lithotripsy - Past Surgical History Past Surgical History: Yes Neuro Surgical History: No Pertinent History Cardiac: No Pertinent History Respiratory: No Pertinent History Gastrointestinal: Appendectomy Genitourinary: No Pertinent History Musculoskeletal: No Pertinent History Female Surgical History: Hysterectomy Other Surgical History: bladder tie up, umbilical sx at age 4,colonoscopy-hx polyps - Social History Smoking Status: Never smoker Exposure to second hand smoke: No Drug Use: none - Social Determinants of Health Will the patient participate in the screening: Yes Do you worry about a steady place to live?: No Do you have any problems with any of the following?: No known problems In the past 12 months,have you had to go without utilities?: No Transportation Issues: No Has anyone in your support network made you feel unsafe?: No Have you or anyone in your house had to go w/o enough food: No - Nursing Vital Signs Nursing Vital Signs: Initial Vital Signs Pulse Rate 89 11/25/24 19:16 Blood Pressure 165/66 11/25/24 19:16 O2 Sat by Pulse Oximetry 98 11/25/24 19:16 Pain Scale Pain Intensity 5 - Physical Exam General Appearance: no apparent distress Neck Exam: normal inspection, full range of motion Respiratory Exam: normal breath sounds, lungs clear Cardiovascular Exam: regular rate/rhythm, normal heart sounds Back Exam: normal inspection, normal range of motion Extremity Exam: inflammation, joint swelling, swelling, tenderness (Left hand 4th and 5th finger proximal phalanx swelling redness with some swelling and redness dorsum of medial hand. Warm, tender to touch. Painful movements at interphalangeal joints and metacarpophalangeal joints. Distal neurovascular intact. Puncture wound at DIP area on the volar side.) Neurologic Exam: alert, oriented x 3, cooperative Skin Exam: normal color SpO2 Interpretation: normal SpO2: 98 O2 Delivery: Room Air - Progress Progress: unchanged Progress Note: 11/25/24 19:44 74 years old is evaluated in the ER for accidental dog bite when she was trying to take something out of her puppies mouth yesterday. Patient has gradually increasing swelling and developing cellulitis of the 4th and 5th finger and dorsum of hand. She is afebrile. Her tetanus is updated. She is allergic to penicillin, started on Doxy and clindamycin and given symptomatic treatment for pain and here. Recommended elevation, intermittent ice application and outpatient follow-up with primary care for reevaluation in 2 days. Discussed signs symptoms of worsening needing return to ER which she seems understanding, the area of inflammation/cellulitis was marked. Patient had only a puncture wound and has swelling of dorsum of hand but there was no trauma, do not think needs imaging. Counseled pt/family regarding: diagnosis, need for follow-up Medical Desision Making - Diagnostic Testing Diagnostic test were ordered, analyzed, and reviewed by me: No - Risk of complications The pt has a mod risk of morbidity or mortality based on: Need for prescription drug management - Departure Departure Disposition: Home Clinical Impression: Cellulitis of hand, left, Dog bite Condition: Stable Critical Care Time: No Referrals: MARIO POLANCO [Primary Care Provider, EMERGENCY MEDICINE] - Follow up/PCP as directed Instructions: Animal Bites ED, Cellulitis (skin infection) in adults - Discharge instructions Additional Instructions: Intermittent ice application. Take Tylenol/ibuprofen as needed. Follow-up with primary care for reevaluation. Keep it elevated. Return to ER for increasing pain swelling redness or if develop fever chills/difficulty movements of the fingers/hand/wrist etc. Prescriptions: clindamycin HCL [Clindamycin HCl] 300 mg PO QID 7 Days #28 cap Doxycycline Hyclate 100 mg [Vibramycin 100 MG] 100 mg PO BID #14 tab
[2024-11-25 20:04] VITALS: BP 154/70; PULSE 79
== END 2024-11-25 20:07 | disposition home or self-care (01) ==
LOC: ED 19:11
DX: S60.477A Other superficial bite of left little finger, initial encounter (principal); S60.475A Other superficial bite of left ring finger, initial encounter; L03.114 Cellulitis of left upper limb; W54.0XXA Bitten by dog, initial encounter; Z79.84 Long term (current) use of oral hypoglycemic drugs; Z79.899 Other long term (current) drug therapy; Z23 Encounter for immunization
CPT/HCPCS: 90471; 90715; 99283; A4570; A9270-GY